=== PATIENT | female | born 1995 | race Two or more races ===

== ENCOUNTER 2024-12-01 15:55 | Outpatient (OUT) | payer OTHER, SELFPAY ==
[2024-12-01 16:23] LABS: Basophils Percent Auto 0.4 % (0.2-2.0); Eosinophils Absolute Auto 0.1 10^3/uL (0.0-0.7); Eosinophils Percent Auto 2.4 % (0.9-7.0); Hematocrit 41.1 % (36.0-48.0); Hemoglobin 13.6 g/dL (12.0-16.0); Immature Granulocytes Abs Auto 0.02 10^3/uL (0.00-0.03); Immature Granulocytes Pct Auto 0.4 % (0.0-0.5); Mean Corpuscular HGB Conc 33.1 g/dL (29.9-35.2); Mean Corpuscular Hemoglobin 28.9 pg (26.7-34.0); Mean Corpuscular Volume 87.3 fL (81.0-99.0); Mean Platelet Volume 9.8 fL (9.5-13.5); Monocytes Absolute Auto 0.4 10^3/uL (0.3-0.8); Monocytes Percent Auto 8.2 % (1.7-12.0); Neutrophils Absolute Auto 2.7 10^3/uL (1.4-6.5); Neutrophils Percent Auto 50.6 % (43.0-75.0); Platelet Count 279 10^3/uL (150-450); Red Blood Count 4.71 10^6/uL (4.20-5.40); Red Cell Distribution Width 12.6 % (11.0-15.0); White Blood Count 5.3 10^3/uL (4.0-11.0)
[2024-12-01 16:48] LABS: Alanine Aminotransferase 32 U/L (14-59); Albumin Globulin Ratio 0.9; Albumin Level 3.7 g/dL (3.4-5.0); Alkaline Phosphatase 76 U/L (46-116); Amylase 22 U/L (25-115); Aspartate Amino Transferase 12 U/L (15-37); BUN Creatinine Ratio 11.5; Bilirubin Total 0.9 mg/dL (0.2-1.0); Calcium 9.6 mg/dL (8.5-10.1); Carbon Dioxide 27.6 mmol/L (21.0-32.0); Chloride 105 mmol/L (98-107); Estimated GFR (African America >60 (>=60 mL/min/1.73m^2); Estimated GFR (Non-African Ame >60 (>=60 mL/min/1.73m^2); Glucose 92 mg/dL (74-106); Potassium 3.6 mmol/L (3.5-5.1); Sodium 141 mmol/L (136-145); Total Protein 7.7 g/dL (6.4-8.2)
== END 2024-12-01 15:56 | disposition home or self-care (01) ==
LOC: LAB 15:58
PROVIDERS: PCP Family Medicine; Visit Provider Family Medicine
DX: K52.9 Noninfective gastroenteritis and colitis, unspecified (principal); I10 Essential (primary) hypertension; R53.83 Other fatigue
CPT/HCPCS: 36415; 80053; 82150; 83690; 85025

== ENCOUNTER 2025-02-03 10:01 | Outpatient (OUT) | payer OTHER, SELFPAY ==
--- OUTSIDE RECORDS SUMMARY | 2025-02-03 10:22 | XMS_ITS | CCD ---
Author Organization [facility] Care Team Providers Care Rope Tier Name Role Phone DR GUANACO DAVISON Primary Care Unavailable LUBNA, DR COPE Attending Unavailable DR ANATOLIY CALVO Admitting Unavailable SANJIV HINSON Consulting Unavailable DR GUANACO DAVISON Primary Care Unavailable GINA JESUS Attending Unavailable GINA JESUS Admitting Unavailable GINA JESUS Consulting Unavailable Rebecca Muñiz Unavailable GUANACO DAVISON Primary Care Unavailable YUSUF TORREZ Attending Unavailable DAYTON SHEPHERD Attending Unavailable DAYTON SHEPHERD Referring Unavailable GUANACO DAVISON Primary Care Unavailable Guanaco Davison MD Primary Care Provider [phone] CALLUM NICE Attending Unavailable GUANACO DAVISON Referring Unavailable GUANACO DAVISON Primary Care Unavailable CALLUM NICE Referring Unavailable GUANACO DAVISON Primary Care Unavailable Medications Current Medications Medication Drug Class(es) Dates Sig (Normalized) Sig (Original) [id number] 200 actuat albuterol 0.09 mg/actuat metered dose inhaler (2 sources) beta2-Adrenergic Agonist Start: 02-26-2021 take 2 puff(s) by inhalation every four hours as needed Albuterol Sulfate HFA 108 (90 Base) MCG/ACT 2 puffs as needed Inhalation every 4 hrs for 30 days Feb, Active escitalopram 10 mg oral tablet (2 sources) Serotonin Reuptake Inhibitor take 1 tablet by mouth once daily escitalopram (LEXAPRO) 10 mg tablet Take 10 mg by mouth daily. Active hydrOXYzine pamoate 25 mg oral capsule (4 sources) Antihistamine take 1 capsule by mouth three times daily as needed hydrOXYzine (VISTARIL) 25 mg capsule Take 25 mg by mouth 3 (three) times a day as needed for itching. Active Vistaril Active levonorgestrel 0.580632 mg/hr intrauterine system (2 sources) Progestin, Progestin-containing Intrauterine Device Mirena (52 MG) 20 MCG/24HR as directed Intrauterine INSERTED IN 2017 Active metroNIDAZOLE 500 mg oral tablet (1 source) Nitroimidazole Antimicrobial Start: 2024 End: 2024 take 1 tablet by mouth in the morning, then take 1 tablet by mouth at bedtime metroNIDAZOLE (FLAGYL) 500 mg tablet Indications: BV (bacterial vaginosis) Take 1 tablet (500 mg total) by mouth in the morning and 1 tablet (500 mg total) before bedtime. Do all this for 7 days. 14 tablet 01/14/2025 01/21/2025 Active Problems Active Problems Problem Classification Problem Date Documented Date Episodic/Chronic Abdominal pain (2 sources) Pain in pelvis; Translations: [Pelvic and perineal pain] Onset: 01-12-2025 01-12-2025 Episodic Fluid and electrolyte disorders (1 source) Dehydration; Translations: [DEHYDRATION] Onset: 07-24-2021 Episodic Inflammatory diseases of female pelvic organs (1 source) Bacterial vaginosis; Translations: [Acute vaginitis] 01-14-2025 Episodic Menstrual disorders (2 sources) Irregular periods; Translations: [Irregular menstruation, unspecified] Onset: 01-12-2025 01-12-2025 Chronic Mood disorders (2 sources) Depressive disorder; Translations: [Major depressive disorder, single episode, unspecified] Chronic Nausea and vomiting (3 sources) Nausea with vomiting, unspecified; Translations: [NAUSEA WITH VOMITING UNSPECIFIED] Onset: 07-14-2021 Episodic Other female genital disorders (1 source) Vaginal irritation; Translations: [Other specified noninflammatory disorders of vagina] 01-12-2025 Episodic Other female genital disorders (2 sources) Other specified noninflammatory disorders of vagina; Translations: [Other specified noninflammatory disorders of vagina] Onset: 01-12-2025 Episodic Other non-traumatic joint disorders (1 source) Ankle pain Onset: 06-20-2024 Episodic Residual codes; unclassified (4 sources) Procedure and treatment not carried out due to patient leaving prior to being seen by health care provider; Translations: [PROC AND TX NOT CARRIED OUT PT LEAVE] Onset: 07-16-2021 Episodic Sprains and strains (1 source) Sprain of unspecified ligament of left ankle, initial encounter; Translations: [Sprain of unspecified ligament of left ankle, initial encounter] Onset: 06-20-2024 Episodic Unclassified (1 source) Lft Ankle Pain Onset: 06-20-2024 Unclassified (1 source) New Patient Onset: 01-12-2025 Viral infection (1 source) COVID-19; Translations: [COVID-19] Onset: 07-24-2021 Past or Other Problems Problem Classification Problem Date Documented Da te Episodic/Chronic Immunizations and screening for infectious disease (2 sources) Encounter for immunization Onset: 10-22-2021 Resolved: 11-12-2021 Episodic Results Test Name Value Interpretation Reference Range Facil ity GRAM STAINon 01-12-2025 Microscopic observation Gram stain Nom (Unsp spec) GRAM STAIN INTERMEDIATE FOR BACTERIAL VAGINOSIS, ALTERED VAGINAL GUCCI (Based on Alena scoring, validated for vaginal specimens) NO YEAST SEEN Normal [facility] Comment on above: Performed By: #### 6 [id number] #### [facility] ([id number]) [address], [address] [place] [address] POCT , urineon 12-25 Beta HCG ( test) Ql (U) Negative [facility] Internal Maintenance Mechanic Helper Check Completed and Passed Yes [facility] YEAST CULTUREon 01-12-2025 Yeast Org specific cx Ql (Unsp spec) FUNGAL SMEAR NO FUNGAL ELEMENTS SEEN ON DIRECT SMEAR CULTURE RESULTS NO YEAST ISOLATED AT 5 DAYS Normal [facility] Comment on above: Performed By: #### 1 [id number] #### [facility] ([id number]) [address], [address] [place] [address] XR ANKLE LT MIN 3 VWSon 05-25 XR ANKLE LT MIN 3 VWS XR ANKLE LT MIN 3 VWS LEFT ANKLE 3 VIEWS COMPARISON: None. HISTORY: Twisted left ankle, left ankle pain. FINDINGS: AP, oblique, and lateral views of the left ankle obtained. The ankle mortise is intact. There is no evidence for an acute fracture or dislocation. Chronic dorsal focus of ossification along the navicular. IMPRESSION: No evidence for an acute fracture. Finalized by León Lakhani MD on 06/20/2024 8:13 PM Normal [facility] ECG 12 lead ECGon 07-17-2021 ECG 12 lead ECG [address] [address] Electrocardiograph Report Signed Patient: Sadaf Jesus MR#: [id number] : 1995 Acct:[id number] Age/Sex: 25 / F ADM Date: 07/17/21 Loc: ER Room: Type: [facility] ER Attending Dr: Ordering Provider: Huan Land DO Date of Service: 07/17/21 ECG/ECG 12 lead ECG: Shortness of Breath/Dyspnea Copies to: Test Reason : Blood Pressure : / mmHG Vent. Rate : 091 BPM Atrial Rate : 091 BPM P-R Int : 142 ms QRS Dur : 070 ms QT Int : 330 ms P-R-T Axes : 056 005 010 degrees QTc Int : 405 ms Normal sinus rhythm Low voltage QRS Cannot rule out Anterior infarct , age undetermined Abnormal ECG No previous ECGs available Confirmed by HUAN LAND DO ([id number]) on 07/17/2021 11:05:07 PM Referred By: Electronically Signed By:HUAN LAND DO Transcribed By: MUS Dictated By: Huan Land DO 07/17/212002 Signed By: 07/17/21 [id number] Normal [facility] XR chest 1V portableon 07-17 XR chest 1V portable [address] [address] XRay Report Signed Patient: Sadaf Jesus MR#: [id number] : 1995 Acct:[id number] Age/Sex: 25 / F ADM Date: 07/17/21 Loc: ER Room: Type: [facility] ER Attending Dr: Ordering Provider: Huan Land DO Date of Service: 07/17/21 XR/XR chest 1V portable: Shortness of Breath/Dyspnea Copies to: Huan Land DO PORTABLE AP ERECT CHEST 2020 hours CLINICAL HISTORY: Shortness of breath, cough and chest pain. COVID + last week COMPARISON: None The heart is within normal limits. There is mild patchy groundglass density at the lower lungs. There is no additional consolidation. There is no effusion or pneumothorax. The osseous structures are intact. Subtle dextroscoliotic curvature is noted. XR/XR chest 1V portable IMPRESSION: MILD GROUNDGLASS INFILTRATES. Impression dictated by: Joann Chanel M.D.07/17/2021 8:40 PM Dictation Location: [place] [address] Transcribed By: BRENDA 07/17/212039 Dictated By: Joann Chanle MD 07/17/212027 Signed By: 07/17/212039 Normal [facility] AMYLASEon 07-14-2021 AMYL <30 Critically low 31-110 [facility] Comment on above: Performed By: #### A CAIO DOWD #### [facility] [address] [place] [address] Betty Joann CBC AUTO DIFFon 07-14-2021 BASO # 0.0 103/ul Normal 0.0-0.1 [facility] Comment on above: Performed By: #### C BC #### [facility] [address] [place] [address] Betty Joann Basophils/100 WBC (Bld) 0.3 % Normal 0.2-2.0 [facility] Comment on above: Performed By: #### C BC #### [facility] [address] [place] [address] Betty Joann EO # 0.0 103/ul Normal 0.0-0.7 [facility] Comment on above: Performed By: #### C BC #### [facility] [address] [place] [address] Betty Joann Eosinophils/100 WBC (Bld) 0.0 % Critically low 0.9-7.0 [facility] Comment on above: Performed By: #### C BC #### [facility] [address] [place] [address] Betty Jonan Erythrocyte distribution width (RBC) [Ratio] 12.7 % Normal 11.0-15.0 [facility] Comment on above: Performed By: #### C BC #### [facility] [address] [place] [address] Betty Joann Hematocrit (Bld) [Volume fraction] 43.4 % Normal 36.0-48.0 [facility] Comment on above: Performed By: #### C BC #### [facility] [address] [place] [address] Betty Joann Hemoglobin (Bld) [Mass/Vol] 14.8 g/dL Normal 12.0-16.0 [facility] Comment on above: Performed By: #### C BC #### [facility] [address] [place] [address] Betty Joann IG # 0.02 10e3/ul Normal 0.00-0.03 [facility] Comment on above: Performed By: #### C BC #### [facility] [address] [place] [address] Betty Joann IG % 0.6 % Critically high 0.0-0.5 [facility] Comment on above: Performed By: #### C BC #### [facility] [address] [place] [address] Betty Joann LYMPH # 0.9 103/ul Critically low 1.2-3.8 [facility] Comment on above: Performed By: #### C BC #### [facility] [address] [place] [address] Betty David Lymphocytes/100 WBC (Bld) 27.4 % Normal 20.5-60.0 [facility] Comment on above: Performed By: #### C BC #### [facility] [address] [place] [address] Betty David MANUAL DIFF REQ NO Normal [facility] Comment on above: Performed By: #### C BC #### [facility] [address] [place], [place] [id number] Betty Joann MCH (RBC) [Entitic mass] 28.5 pg Normal 26.7-34.0 [facility] Comment on above: Performed By: #### C BC #### [facility] [address] [place], [place] [phone] Betty David MCHC (RBC) [Mass/Vol] 34.1 g/dL Normal 29.9-35.2 [facility] Comment on above: Performed By: #### C BC #### [facility] [address] [place], [place] [phone] Betty David MCV (RBC) [Entitic vol] 83.6 fL Normal 81.0-99.0 [facility] Comment on above: Performed By: #### C BC #### [facility] [address] [place], [place] [id number] Betty Joann MONO # 0.2 103/ul Critically low 0.3-0.8 [facility] Comment on above: Performed By: #### C BC #### [facility] [address] [place], [place] [id number] Betty David Monocytes/100 WBC (Bld) 6.3 % Normal 1.7-12.0 [facility] Comment on above: Performed By: #### C BC #### [facility] [address] [place] [address] Betty Joann NEUT # 2.2 103/ul Normal 1.4-6.5 [facility] Comment on above: Performed By: #### C BC #### [facility] [address] [place], [place] [phone] Betty Joann Neutrophils/100 WBC (Bld) 65.4 % Normal 43.0-75.0 [facility] Comment on above: Performed By: #### C BC #### [facility] [address] [place], [place] [id number] Bettyalda David Platelet mean volume (Bld) [Entitic vol] 10.4 fL Normal 9.5-13.5 [facility] Comment on above: Performed By: #### C BC #### [facility] [address] [place], [place] [phone] Betty Joann PLT 131 103/ul Critically low 150-450 [facility] Comment on above: Performed By: #### C BC #### [facility] [address] [place], [place] [phone] Betty Joann RBC 5.19 106/ul Normal 4.20-5.40 [facility] Comment on above: Performed By: #### C BC #### [facility] [address] [place], [place] [phone] Betty David WBC 3.4 103/ul Critically low 4.0-11.0 [facility] Comment on above: Performed By: #### C BC #### [facility] [address] [place], [place] [id number] Betty David LIPASEon 07-14-2021 Lipase [Catalytic activity/Vol] 146.0 U/L Normal 23.0-300.0 [facility] Comment on above: Performed By: #### A MY, LIPA #### [facility] [address] [place], [place] [id number] Bettyalda David PROF 14(COMP METB)on 021 Albumin [Mass/Vol] 3.4 g/dL Critically low 3.5-5.0 [facility] Comment on above: Performed By: #### C MP #### [facility] [address] [place], [place] [id number] Bettyalda David Albumin/Globulin [Mass ratio] 0.7 {ratio} Normal [facility] Comment on above: Performed By: #### C MP #### [facility] [address] [place], [place] [phone] Betty Joann ALP [Catalytic activity/Vol] 61 U/L Normal 38-126 [facility] Comment on above: Performed By: #### C MP #### [facility] [address] [place], [place] [id number] Betty David ALT [Catalytic activity/Vol] 370 U/L Critically high 9-52 [facility] Comment on above: Performed By: #### C MP #### [facility] [address] [place], [place] [id number] Bettyalda David Anion gap [Moles/Vol] 14.1 mmol/L Normal [facility] Comment on above: Performed By: #### C MP #### [facility] [address] [place], [place] [id number] Betty Joann AST [Catalytic activity/Vol] 111 U/L Critically high 14-36 [facility] Comment on above: Performed By: #### C MP #### [facility] [address] [place] [address] Betty Joann Bilirubin [Mass/Vol] 0.5 mg/dL Normal 0.2-1.3 [facility] Comment on above: Performed By: #### C MP #### [facility] [address] [place] [address] Betty Joann Calcium [Mass/Vol] 8.2 mg/dL Critically low 8.4-10.2 [facility] Comment on above: Performed By: #### C MP #### [facility] [address] [place] [address] Betty Joann Chloride [Moles/Vol] 100 mmol/L Normal 98-107 [facility] Comment on above: Performed By: #### C MP #### [facility] [address] [place] [address] Betty Joann CO2 [Moles/Vol] 25.6 mmol/L Normal 22.0-30.0 [facility] Comment on above: Performed By: #### C MP #### [facility] [address] [place] [address] Betty Joann Creatinine [Mass/Vol] 0.96 mg/dL Normal 0.52-1.04 [facility] Comment on above: Performed By: #### C MP #### [facility] [address] [place] [address] Betty Joann EGFR-AF NAURUAN >60 Normal >=60 [facility] Comment on above: Performed By: #### C MP #### [facility] [address] [place], [place] [phone] Betty Joann EGFR-NON AF NAURUAN >60 Normal >=60 [facility] Comment on above: Performed By: #### C MP #### [facility] [address] [place] [address] Betty Joann Globulin (S) [Mass/Vol] 4.7 g/dL Normal [facility] Comment on above: Performed By: #### C MP #### [facility] [address] [place], [place] [address] Betty Joann Glucose [Mass/Vol] 107 mg/dL Critically high 74-106 T [facility] Comment on above: Performed By: #### C MP #### [facility] [address] [place], [place] [address] Betty Joann Potassium [Moles/Vol] 3.7 mmol/L Normal 3.4-5.0 [facility] Comment on above: Performed By: #### C MP #### [facility] [address] [place], [place] [address] Betty Joann Protein [Mass/Vol] 8.1 g/dL Normal 6.1-8.2 [facility] Comment on above: Performed By: #### C MP #### [facility] [address] [place], [place] [address] Betty Joann Sodium [Moles/Vol] 136 mmol/L Critically low 137-145 [facility] Comment on above: Performed By: #### C MP #### [facility] [address] [place], [place] [address] Betty Joann Urea nitrogen [Mass/Vol] 13.0 mg/dL Normal 7.0-17.0 [facility] Comment on above: Performed By: #### C MP #### [facility] [address] [place], [place] [address] Betty Joann Urea nitrogen/Creatinin e [Mass ratio] 13.5 mg/mg Normal [facility] Comment on above: Performed By: #### C MP #### [facility] [address] [place], [place] [address] Betty Joann US SINGLE QUAD RT UPPERon US SINGLE QUAD RT UPPER EXAM: US SINGLE QUAD RT UPPER HISTORY: Pain COMPARISON: None. TECHNIQUE: Right upper quadrant ultrasound is performed. Multiple grayscale and color images are submitted for review. FINDINGS: The visualized liver demonstrates normal size and echotexture. The gallbladder appears unremarkable. No gallstones are seen. Gallbladder wall measures 2.6 mm in thickness. Sonographic Chatman sign is absent. Common bile duct appears unremarkable, measuring 2 mm in diameter. The visualized portion of the pancreas appears unremarkable. The right kidney also appears unremarkable, measuring 10.7 x 5.5 x 4.7 cm, with normal morphology, echotexture and cortical thickness. Normal blood flow is seen in the right kidney. IMPRESSION: Unremarkable right upper quadrant ultrasound. Electronically authenticated by: SANJIV SIMONEMEÑO Date: 2021-07-14 13:15 Normal [facility] [place] SARS-CoV-2 (COVID-19) RNA NIDHI+probe Ql (Unsp spec) Positive Normal Negative [facility] Comment on above: Order Comment: Resul ts called at 0958 on 07/10/21. Reason for Exam Contact with and (suspected) exposure to other viral communi Healthcare Worker?: Y Result Comment: Testing for SARS-CoV-2 by RT-PCR This test was developed and its performance characteristics determined by [employer] and validated at the [facility]. This test has not been FDA cleared or approved. This test has been authorized by FDA under an Emergency Use Authorization (EUA). This test has been validated in accordance with the FDA's Guidance Document (Policy for Diagnostics Testing in Laboratories Certified to Perform High Complexity Testing under CLIA prior to Emergency Use Authorization for Coronavirus Disease-2019 during the Public Health Emergency) issued on February 24, 2020. This test is only authorized for the duration of time the declaration that circumstances exist justifying the authorization of the emergency use of in vitro diagnostic tests for detection of SARS-CoV-2 virus and/or diagnosis of COVID-19 infection under section 564(b)(1) of the Act, 21 U.S.C. 360bbb-3(b)(1), unless the authorization is terminated or revoked sooner. PERFORMED BY: [place] [address] PATHOLOGIST [employer] WORKER LAYLA GONZALEZ M.D. Performed By: #### C OVID 19 [facility] [place] #### [address] Vital Signs Date Time Vital Sign Value Performing Clinician Clemente white 01-12-2025 09:46-0500 Body height 170.2 cm Callum MOJICA Work Phone: [facility] 01-12-2025 09:46-0500 Body mass index (BMI) [Ratio] 31.01 kg/m2 Callum Nice [employer] Work Phone: [facility] 01-12-2025 09:46-0500 Body weight 89.81 kg Callum Nice [employer] Work Phone: [facility] 01-12-2025 09:46-0500 Diastolic blood pressure 86 mm[Hg] Callum Nice [employer] Work Phone: [facility] 01-12-2025 09:46-0500 Systolic blood pressure 122 mm[Hg] Callum Nice [employer] Work Phone: [facility] Encounters Encounter Date Encounter Type Care Provider Facility Start: 01-14-2025 End: 01-14-2025 Telephone encounter Callum Estephanie Ryan [employer] Work Phone: [facility]ne[facility] Start: 01-12-2025 End: 01-12-2025 ambulatory [facility] Start: 01-12-2025 End: 01-12-2025 ambulatory [facility] Start: 01-12-2025 End: 01-12-2025 Office outpatient new 20 minutes Callum M Ryan [employer] Work Phone: [facility]ne[facility] Comment on above: Vaginal irritation ( Primary Dx); Pelvic pain; Irregular menses Start: 06-20-2024 End: 06-21-2024 Emergency department patient visit DAYTON SHEPHERD [facility] Start: 11-12-2021 [facility] Start: 11-12-2021 End: 11-12-2021 ambulatory Rebecca Fitt Other [facility] Other Start: 10-22-2021 ([facility] C Vac) [facility] Co vid Vaccine Rebecca Fitt [facility] Start: 10-22-2021 End: 10-22-2021 ambulatory Rebecca Muñiz Other [facility] Other Start: 07-16-2021 End: 07-16-[address] GUANACO DAVISON Facility:[facility] Start: 07-14-2021 End: 07-14-2021 ambulatory SANJIV AHMEÑO Facility:[facility] Procedures Date Procedure Procedure Detail Performing Clinician Start: 01-12-2025 Urine test visual color cmprsn onel Nice [employer] Work Phone: Plan of Treatment Date Care Activity Detail Author Start: 01-12-2026 [facility] Start: 01-12-2026 Tobacco Screening [facility] Start: 01-12-2025 End: 01-12-2026 US Pelvis transabdominal and transvaginal Ultrasound pelvic with transvaginal Imaging Routine Pelvic pain Expected: 01/12/2025, Expires: 01/12/2026 [employer] Work Phone: Comment on above: Expected: 01/12/2025 , Expires: 01/12/2026 Start: 07-25-2024 COVID-19 Vaccine ( season) COVID[facility] ( [facility] Start: 07-25-2024 Influenza vaccination Influenza [facility] ine [facility] Start: 01-06-2024 DTaP,Tdap and Td Vac cines (7 - Td or Tdap) DTaP,Tdap and Td Vaccines (7 - Td or Tdap) [facility] Start: 2014 Screening for malign ant neoplasm of cervix [facility] Start: 2011 Adult BMI Follow Up Plan Adult BMI Follow Up Plan [facility] Start: 2005 Depression Screening [facility]ing [facility] End: 01-12-2026 Microscopic observation [Identifier] in Unspecified specimen by Gram stain Gram stain Microbiology Routine Vaginal irritation 1 Occurrences starting 01/12/2025 until 01/12/2026 [facility] Comment on above: 1 Occurrences starti ng 01/12/2025 until 01/12/2026 End: 01-12-2026 Yeast Culture Yeast Culture Microbiology Routine Vaginal irritation 1 Occurrences starting 01/12/2025 until 01/12/[facility] Comment on above: 1 Occurrences starti ng 01/12/2025 until 01/12/2026 Immunizations Immunization Date Immunization Notes Care Provider [facility] 09-18-2023 influenza virus vaccine, unspecified formulation [employer] ENIO-CNM [facility] 11-12-2021 COVID-19 Pfizer Rebecca Fitt Other [facility] Other 10-22-2021 COVID-19 Pfizer Rebecca Fitt Other [facility] Other Payers Date Payer Category Payer Managed Care Other (unspecified) [employer] [id number] 2023 Unknown [id number] 2020 Unknown [id number] 1993 Unknown [id number] 1993 Unknown [id number] 1993 Unknown [id number] 1993 Unknown [id number] 1959 Self-pay [id number] Social History Date Type Detail Facility Start: 01-04-2021 End: 01-12-[address] [facility] [employer] Other Start: 06-06-2021 Tobacco smoking stat [facility] Never smoked tobacco [facility] Start: 06-06-2021 Tobacco use and exposure Smokeless tobacco non-user [facility] Start: 01-12-2025 Alcoholic beverage intake Current drinker of alcohol (finding) [facility] Start: 01-04-2021 End: 01-12-2025 History of Social function [facility] How often to you hav e a drink containing alcohol? Monthly or less [facility] How many standard drinks containing alcohol do you have on a typical day? 1 or 2 [facility] How often do you hav e 6 or more drinks on 1 occasion? Never [facility] Childcare Unknown [facility] Start: 01-12-2025 Alcohol Comment Socially [facility] Start: 1995 Sex assigned at Not on file [facility] Start: 06-29-2015 Sex Female (finding) [facility] Note 01-14-2025 Telephone Encounter - YUNIOR Adam - 01/14/2025 10:03 AM EST Note Date & Type Note Facility 01-14-2025 Miscellaneous Notes Formattin g of this note might be different from the original. Call to pt. To discuss results. Pt. Advised preliminary yeast culture negative, but final culture pending. BV +. Allergies and pharmacy verified. Rx. For metronidazole sent and discussed self care, avoidance of alcohol. Pt. Verbalized understanding. documented in this encounter [facility] Telephone encounter Note 01-14-2025 Telephone Encounter - YUNIOR Adam - 01/14/2025 10:03 AM EST Note Date & Type Note Facility 01-14-2025 Telephone encounter Note Call to pt. To discuss results. Pt. Advised preliminary yeast culture negative, but final culture pending. BV +. Allergies and pharmacy verified. Rx. For metronidazole sent and discussed self care, avoidance of alcohol. Pt. Verbalized understanding. [facility] History of Present illness Narrative 01-12-2025 YUNIOR Adam - 01/12/2025 9:30 AM EST Note Date & Type Note Facility 01-12-2025 History of Present illness Narrative Sadaf Jesus is a 29 y.o.female. Patient's last menstrual period was 12/13/2024 (approximate). She presents as a New Patient for vaginal pain during and after intercourse and with use of toys. Patient [facility], she is unsure of type. For the past 3-4 weeks, she's been experiencing a lot of pelvic cramping and is unsure if she can feel her strings. She began bleeding on Friday this week, by Friday she only had brown (old) blood, then today she felt the urge to have a bowel movement but was unable to go and there was 2 drops of bright blood in the toilet. She took a total of 5 at home tests in the last two weeks, including 2 tests this AM all were Negative. Periods are irregular with IUD, she has months where she has no period and then months where she bleeds heavy. She has been with 2 male partners over the last year, denies using condoms and denies wanting STI testing. Pt. States one of the partners is new as of the last month. Denies vaginal itching, discharge or odor besides what she normally has. Her last intercourse was last Friday. Pt. Denies dysuria, fever or chills. Current contraception:IUD LMP: aprox: 12/13/24 OB History No obstetric history on file. MEDICAL HX Past Medical History: Diagnosis Date Anxiety Depression SURGICAL HX History reviewed. No pertinent surgical history. FAMILY HX Family History Problem Relation Age of Onset Breast cancer Neg Hx Colon cancer Neg Hx Ovarian cancer Neg Hx Uterine cancer Neg Hx MEDS Current Outpatient Medications Medication Sig Dispense Refill escitalopram (LEXAPRO) 10 mg tablet Take 10 mg by mouth daily. (Patient not taking: Reported on 01/12/2025) hydrOXYzine (VISTARIL) 25 mg capsule Take 25 mg by mouth 3 (three) times a day as needed for itching. (Patient not taking: Reported on 01/12/2025) No current facility-administered medications for this visit. ALLERGIES No Known Allergies Review of Systems As noted in HPI Objective Urine dip: negative UPT: negative BP 122/86 Ht 170.2 cm (5' 7 ) Wt 89.8 kg (198 lb) LMP 12/13/2024 (Approximate) BMI 31.01 kg/m Physical Exam Exam conducted with a management recruiter present. HENT: Head: Normocephalic and atraumatic. Eyes: General: No scleral icterus. Pulmonary: Effort: Pulmonary effort is normal. Abdominal: General: Abdomen is flat. There is no distension. Palpations: Abdomen is soft. There is no mass. Tenderness: There is no abdominal tenderness. There is no right CVA tenderness, left CVA tenderness, guarding or rebound. Hernia: No hernia is present. Genitourinary: General: Normal vulva. Exam position: Lithotomy position. Pubic Area: No rash or pubic lice. Labia: Right: No rash, tenderness, lesion or injury. Left: No rash, tenderness, lesion or injury. Urethra: No prolapse, urethral pain, urethral swelling or urethral lesion. Vagina: Normal. Cervix: Normal. Uterus: Normal. Adnexa: Right adnexa normal and left adnexa normal. Rectum: No external hemorrhoid. Comments: Strings noted at cervical os. Skin: General: Skin is warm and dry. Neurological: General: No focal deficit present. Mental Status: She is alert. Psychiatric: Comments: Patient repeatedly apologetic regarding her hygiene. Patient wringing her fingers frequently and looking down during history. Makes eye contact periodically. Affect slightly flat. Patient very soft spoken. Assessment/Plan: Sadaf was seen today for new patient. Diagnoses and all orders for this visit: Vaginal irritation - Yeast Culture; Future - Gram stain; Future Pelvic pain - POCT , urine - Ultrasound pelvic with transvaginal; Future Irregular menses - POCT , urine Will await treatment prior to cultures. Recommended condom use Recommended use of lubrication with sex toys Discussed recommendation for STI testing, patient declines RTC in 2 weeks for annual exam and results of pelvic ultrasound As patient leaving clinic she informed front office staff that she does not plan to have the ultrasound done. - YUNIOR Mercado 01/12/25 10:47 AM JUD Montemayor APRN-CNM 01/12/25 1053 documented in this encounter [facility] Evaluation note 11-12-2021 Note Date & Type Note Facility 11-12-2021 Evaluation note Encounter Date Diagnosis Assessment Notes Oct, Encounter for immunization (ICD-10 - Z23) Patient presents for COVID-19 vaccination #2. Pre-screening form answers evaluated with patient. Patient denies current illness or allergic reaction to component of COVID-19 vaccine. Patient provided with current copy of EUA. [facility] Other Evaluation note 10-22-2021 Note Date & Type Note Facility 10-22-2021 Evaluation note Encounter Date Diagnosis Assessment Notes Sep, Encounter for immunization (ICD-10 - Z23) Patient presents for COVID-19 vaccination #1. Pre-screening form answers evaluated with patient. Patient denies current illness or allergic reaction to component of COVID-19 vaccine. Patient provided with current copy of EUA. PATIENT MONITORED FOR 15 MINUTES POST-VACCINATI ON WITHOUT ANY REACTION. [facility] Other Evaluation note Note Date & Type Note Facility Evaluation note Diagnosis Vaginal irritation- Primary Pruritus of genital organs Pelvic pain Irregular menses Irregular menstrual cycle documented in this encounter [facility] Evaluation note Note Date & Type Note Facility Evaluation note Diagnosis BV (bacterial vaginosis)- Primary Unspecified vaginitis and vulvovaginitis documented in this encounter [facility] History general Narrative - Reported Note Date & Type Note Facility History general Narrative - Reported Type Medical History chronic depression Medical History panic disorder Medical History anxiety [facility] Other Instructions Note Date & Type Note Facility Instructions Not on filedocumented in this en counter [facility] Instructions Note Date & Type Note Facility Instructions Not on filedocumented in this en counter [facility] Summary Purpose Family History No Family History Records FoundNo Family History Records FoundNo Family History Records FoundNo Family History Records FoundNo Family History Records Found Advance Directives No Advanced Directives Records FoundNo Advanced Directives Records FoundNo Advanced Directives Records FoundNo Advanced Directives Records FoundNo Advanced Directives Records Found Additional Source Comments INFORMATION SOURCE (unrecogn ized section and content) DATE CREATED AUTHOR 07/24/2021 [facility] DATE CREATED AUTHOR AUTHOR'S ORGANIZ ATION 03/02/2022 [facility] DATE CREATED AUTHOR AUTHOR'S ORGANIZ ATION 06/21/2024 [facility] DATE CREATED AUTHOR AUTHOR'S ORGANIZ ATION 01/14/2025 [facility] DATE CREATED AUTHOR AUTHOR'S ORGANIZ ATION 01/18/2025 [facility] REASON FOR VISIT (unrecogniz ed section and content) Reason Comments New Patient Vaginal pain Care Teams (unrecognized sec tion and content) Rope Tier Relationship Specialty Start Date End Date Guanaco Davison MD PCP - General Family Medicine 06/06/21 [employer] Relationship Specialty Start Date End Date Guanaco Davison MD PCP - General Family Medicine 06/06/21 FOR RECORDS PERTAINING TO PATIENTS WHO ARE OR HAVE BEEN ENROLLED IN A CHEMICAL DEPENDENCY/SUBSTANCEABUSE PROGRAM, SOME INFORMATION MAY BE OMITTED. This clinical summary was aggregated from multiple sources. Caution should be exercised in using it in the provision of clinical care. This summary normalizes information from multiple sources, and as a consequence, information in this document may materially change the coding, format and clinical context of patient data. In addition, data may be omitted in some cases. CLINICAL DECISIONS SHOULD BE BASED ON THE PRIMARY CLINICAL RECORDS. [facility] [employer] [facility]. provides no warranty or guarantee of the accuracy or completeness of information in this document.
[2025-02-03 11:36] LABS: HCG Quantitative <1 mIU/mL
== END 2025-02-03 10:02 | disposition home or self-care (01) ==
LOC: LAB 10:01
PROVIDERS: PCP Family Medicine; Visit Provider Family Medicine
DX: N92.6 Irregular menstruation, unspecified (principal)
CPT/HCPCS: 36415; 84702